=== PATIENT | female | born 2000 | race Caucasian/White ===

== ENCOUNTER → 2022-01-19 | Outpatient (CLI) | payer OTHER, SELFPAY | END | disposition home or self-care (01) | LOC: LABSPEC 16:53 | PROVIDERS: Visit Provider Obstetrics & Gynecology | DX: Z36.85 Encounter for antenatal screening for Streptococcus B (principal) | CPT/HCPCS: 87081 ==

== ENCOUNTER 2022-02-18 03:15 | Inpatient (IN) | payer OTHER, SELFPAY ==
[2022-02-18] VITALS (69 sets, daily range): BP systolic 102–166; BP diastolic 55–107; PULSE 71–116; RESP 15; TEMP 36–37.6; O2SAT 80–100; BMI 32.9
[2022-02-18] MEDS: LACTATED RINGERS 500 ML 999 ML IV (03:30)
[2022-02-18 03:56] LABS: Absolute Lymphocyte Count 1.62 X10^3/uL (0.83-4.51); Absolute Neutrophil Count 10.8 X10^3/uL (2.0-7.7); Basophil# 0.02 X10^3/uL; Basophil% 0.1 % (0-1); Eosinophil# 0.04 X10^3/uL; Eosinophils% 0.3 % (0-5); Lymphocyte # 1.62 X10^3/ul (0.83-4.51); Mean Corp Hgb Conc 34.1 g/dL (32-36); Mean Corpuscular Hgb 29.4 pg (27.0-32.0); Mean Corpuscular Volume 86.1 fL (81-99); Mean Platelet Vol. 10.1 fl (6.2-12.0); Monocyte# 0.89 X10^3/uL; Monocyte% 6.6 % (0-10); NRBC Flagged by Analyzer 0 % (0-5); Neutrophil # 10.76 X10^3/uL (2.7-7.7); Platelet Count 244 K/mm3 (150-450); RBC Distribution Width SD 40.2 fl (35.1-43.9); Red Blood Count 4.76 M/mm3 (4.2-5.4); White Blood Count 13.5 K/mm3 (4.4-11.0)
[2022-02-18] MEDS: Lactated Ringers 1,000 ML 50 ML IV ×2 (04:06→09:09)
[2022-02-18] MEDS: fentaNYL-bupivacaine (epidural) 100 ML BAG EPIDURAL ×3 (04:59→13:39)
--- NOTE | 2022-02-18 07:46 | PCM.HP.BLA ---
History and Physical Date of Admission: 02/18/22 Chief complaint: Contractions History present illness: 21-year-old G1, P0 at 40 weeks and 3 days with JOSE 02/15/2022 arrives with contractions. Denies headache, visual changes, chest pain, shortness of breath, nausea vomit, right upper quadrant pain. Patient states good movement. Obstetric history: G1: Current Past medical history: None Medications: None Past surgical history: None Allergies: No known drug allergies Social history: 1 pack/day smoker, denies alcohol or drug use Family history: Denies history DVT or PE Review of systems: Besides above pertinent positives a full review of systems was performed and found to be negative Physical exam: Pressure 132/73 pulse 76 temperature 97.8 ?F SPO2 98% on room air General: Normal-appearing no acute distress HEENT: Normocephalic atraumatic no cervical lymphadenopathy Cardiac/respiratory: No use accessory muscles, nonlabored breathing Cervical exam: 8/90/0, AROM clear fluid minimal Extremities: No peripheral edema normal peripheral pulses Psych: Normal affect, demeanor nonpressured speech Labs: White blood cell count 13.5 hemoglobin 14.0 hematocrit 41.0% platelets 244. Blood type O+ antibody negative Assessment and plan: 21-year-old G1, P0 at 40 weeks and 3 days in labor Admit labor and delivery CEFM GBS negative Routine orders Anesthesia to see
[2022-02-18] MEDS: Oxytocin 15 Units/NS 250ml 15 UNITS/250 ML IV.SOLN 2 UNITS IV (11:06)
--- NOTE | 2022-02-18 12:42 | PCM.PN.OB ---
Subjective Subjective Patient comfortable pushing with epidural Objective Data Objective Data Vital Signs: Vital Signs Temp Pulse BP Pulse Ox 98.7 F 74 127/72 H 98 02/18/22 11:30 02/18/22 11:32 02/18/22 11:32 02/18/22 11:30 Weight: 186 lb Body Mass Index (BMI) 32.9 Intake & Output: Intake and Output for Last 24 Hours 02/16/22 02/17/22 02/18/22 23:59 23:59 23:59 Intake Total 1152.5 / 1152.5 Output Total 500 / 500 Balance 652.5 / 652.5 Lab / Micro Data Result Diagrams: 02/18/22 03:30 Labs: Laboratory Results - last 24 hr 02/18/22 03:30: WBC 13.5 H, RBC 4.76, Hgb 14.0, Hct 41.0, MCV 86.1, MCH 29.4, MCHC 34.1, RDW Std Deviation 40.2, RDW Coeff of Jacques 13.0, Plt Count 244, MPV 10.1, Immature Gran % (Auto) 1.000 H, Neut % (Auto) 80.0 H, Lymph % (Auto) 12.0 L, [place] % (Auto) 6.6, Eos % (Auto) 0.3, Baso % (Auto) 0.1, Absolute Neuts (auto) 10.8 H, Absolute Lymphs (auto) 1.62, Nucleated RBC % 0 02/18/22 03:30: Blood Type O POSITIVE, Antibody Screen NEGATIVE Physical Exam Const alert, oriented x3, no apparent distress, average body habitus, healthy appearing and well nourished HEENT normocephalic and moist oral mucous membranes Eyes PERRL Neck full ROM Resp normal respiratory effort, no retractions and no use of accessory muscles Narrative: Cervical exam: 10/100/+1 Extremity normal to inspection, full ROM and no clubbing, cyanosis or edema Neuro moves all extremities and no focal motor deficits Psych mental status grossly normal, affect normal, speech normal and activity/motor behavior normal Assessment & Plan (1) : PLAN: Patient seen and examined. Pushing with epidural. Coached patient through several pushes. Patient pushing adequately. Educated patient on findings and options including continued maternal pushing versus operative delivery versus section risk benefits alternatives. Patient wishes to continue maternal efforts. We will continue current management
[2022-02-18] MEDS: miSOPROStol 200 MCG Tablet 1000 MCG RC (14:40)
[2022-02-18 16:03] LABS: Absolute Lymphocyte Count 1.25 X10^3/uL (0.83-4.51); Absolute Neutrophil Count 18.4 X10^3/uL (2.0-7.7); Basophil# 0.03 X10^3/uL; Basophil% 0.1 % (0-1); Eosinophil# 0.01 X10^3/uL; Hematocrit 40.4 % (37-47); Hemoglobin 14.1 g/dL (12.0-15.0); Lymphocyte # 1.25 X10^3/ul (0.83-4.51); Lymphocyte % 5.9 % (19-41); Mean Corp Hgb Conc 34.9 g/dL (32-36); Mean Corpuscular Hgb 29.6 pg (27.0-32.0); Mean Corpuscular Volume 84.7 fL (81-99); Monocyte# 1.39 X10^3/uL; Monocyte% 6.6 % (0-10); NRBC Flagged by Analyzer 0 % (0-5); Neutrophil # 18.39 X10^3/uL (2.7-7.7); Neutrophil % 86.9 % (47-70); Platelet Count 213 K/mm3 (150-450); RBC Distribution Width CV 13.1 % (11.6-14.6); RBC Distribution Width SD 40.1 fl (35.1-43.9); Red Blood Count 4.77 M/mm3 (4.2-5.4); White Blood Count 21.2 K/mm3 (4.4-11.0)
[2022-02-18 16:43] LABS: ALB/GLOB Ratio 0.7 RATIO (0.9-2.4); AST(SGOT) 23 U/L (15-37); Alanine Aminotransfer ALT/SGPT 18 U/L (13-56); Albumin, Serum 2.5 g/dL (3.2-5.0); Alkaline Phosphatase 184 U/L (45-117); Anion Gap 9 (5-15); BUN 5 mg/dL (7-18); BUN/Creat Ratio 9.5 RATIO (10-20); Calcium,Total 8.7 mg/dL (8.5-10.1); Chloride 107 mmol/L (98-107); Creatinine, Serum 0.53 mg/dL (0.55-1.02); EST Glomerular Filtration Rate 153 mL/min (>60); Est Glom Filt Rate - Afr Amer 185 mL/min (>60); Estimated Creatinine Clearance 137.73 ml/min; Globulin 3.7 g/dL (2.2-4.2); Glucose 88 mg/dL (74-106); LDH 213 U/L (84-246); Potassium 3.3 mmol/L (3.5-5.1); Protein, Total 6.2 g/dL (6.4-8.2); Sodium Level 137 mmol/L (136-145)
--- NOTE | 2022-02-18 16:46 | EX.PCM.OBRPT ---
Vaginal Delivery Findings Description of Procedure: Preop diagnosis: Term, maternal exhaustion Postop diagnosis: Term, maternal exhaustion Surgeon: Chucho Alexander MD Anesthesia: Epidural EBL: 350 cc Complications: None Specimen: Cord blood Findings: Female in vertex position, LOP +2 station. Apgars 9/9. Vacuum pull x2, no pop offs. Second-degree midline perineal laceration. Consent: Patient arrived in labor subsequently found to be complete dilation and began pushing. Pushed for nearly 5 hours noted to have maternal exhaustion. Upon evaluation LOP +2 station. Pelvis felt adequate for vaginal delivery. Pain well controlled with epidural. Educated patient on options including operative delivery versus delivery risk benefits alternatives. Patient elects for vacuum-assisted vaginal delivery, patient understands risks of cephalhematoma and shoulder dystocia along with maternal tears including the rectum. Patient states understanding wish to proceed. Procedure: Kiwi vacuum was opened. Vaginal examination was again performed and noted to be LOP +2 station. Aguilar catheter was in place. Kiwi suction cup was placed 3 cm anterior to the posterior fontanelle, no maternal tissue was noted to be entrapped under the cup. The right hand applied gentle traction in the axis of the maternal pelvis and coordination with uterine contractions and maternal pushing. Progressive descent was noted with each pull. 2 vacuum pulls were performed, no pop offs. Right hand was elevated with maternal pushing when noting bulge of the perineum. Head delivered. Vacuum suction removed. Head and shoulders delivered with ease. They was handed off to patient. Cord was clamped and cut. Placenta was delivered via cord traction and fundal massage. IV oxytocin was initiated in order to facilitate uterine contractions. Prophylactic Methergine IM and Cytotec [place] thousand echograms were given with prolonged second stage of labor. Cervix and vagina were thoroughly examined, second-degree midline perineal laceration was noted and repaired in typical fashion. was examined after delivery, no visible lacerations or bruises were found.
[2022-02-18] MEDS: Ibuprofen 600 MG Tablet PO (19:41)
[2022-02-19 04:03] VITALS: BP 115/69; PULSE 116; RESP 15; TEMP 36.4; O2SAT 95
--- NOTE | 2022-02-19 07:54 | PCM.PN.OB ---
Subjective Subjective No overnight complaints. Denies headache, visual changes, chest pain, shortness of breath, nausea vomit, right upper quadrant pain Objective Data Objective Data Vital Signs: Vital Signs Temp Pulse Resp BP Pulse Ox O2 Del Method 97.6 F L 116 H 15 115/69 95 Room Air 02/19/22 04:03 02/19/22 04:03 02/19/22 04:03 02/19/22 04:03 02/19/22 04:03 02/19/22 04:03 Oxygen Delivery Method Room Air Weight: 186 lb Body Mass Index (BMI) 32.9 Intake & Output: Intake and Output for Last 24 Hours 02/17/22 02/18/22 02/19/22 23:59 23:59 23:59 Intake Total 3102.50 / 3102.50 Output Total 2100 / 2100 Balance 1002.50 / 1002.50 Lab / Micro Data Result Diagrams: 02/18/22 15:50 02/18/22 15:50 Labs: Laboratory Results - last 24 hr 02/18/22 15:50: WBC 21.2 H, RBC 4.77, Hgb 14.1, Hct 40.4, MCV 84.7, MCH 29.6, MCHC 34.9, RDW Std Deviation 40.1, RDW Coeff of Jacques 13.1, Plt Count 213, MPV 10.0, Immature Gran % (Auto) 0.500, Neut % (Auto) 86.9 H, Lymph % (Auto) 5.9 L, [place] % (Auto) 6.6, Eos % (Auto) 0.0, Baso % (Auto) 0.1, Absolute Neuts (auto) 18.4 H, Absolute Lymphs (auto) 1.25, Nucleated RBC % 0 02/18/22 15:50: Sodium 137, Potassium 3.3 L, Chloride 107, Carbon Dioxide 21.0, Anion Gap 9, BUN 5 L, Creatinine 0.53 L, Estim Creat Clear Calc 137.73, Est GFR (MDRD) Af Amer 185, Est GFR (MDRD) Non-Af 153, BUN/Creatinine Ratio 9.5 L, Glucose 88, Calcium 8.7, Total Bilirubin 1.20 H, AST 23, ALT 18, Alkaline Phosphatase 184 H, Lactate Dehydrogenase 213, Total Protein 6.2 L, Albumin 2.5 L, Globulin 3.7, Albumin/Globulin Ratio 0.7 L Physical Exam Const alert, oriented x3, no apparent distress, average body habitus, healthy appearing and well nourished HEENT normocephalic and moist oral mucous membranes Eyes PERRL Neck full ROM Resp normal respiratory effort, no retractions and no use of accessory muscles GI GI Narrative: Soft, nontender, uterus firm and below umbilicus Extremity normal to inspection and full ROM Neuro moves all extremities and no focal motor deficits Psych mental status grossly normal, affect normal, speech normal and activity/motor behavior normal Assessment & Plan (1) Vaginal delivery: PLAN: day 1 status post vacuum-assisted vaginal delivery for maternal exhaustion. Formula feeding. Elevated blood pressures immediately after delivery, HELLP labs overall stable. We will repeat labs today. Continue to monitor blood pressures, patient asymptomatic. Likely home tomorrow
[2022-02-19 08:13] VITALS: BP 112/66; PULSE 109; RESP 16; TEMP 36.2; O2SAT 97
[2022-02-19] MEDS: Ibuprofen 600 MG Tablet PO (08:25)
[2022-02-19 12:58] VITALS: BP 114/71; PULSE 78; RESP 16; TEMP 35.5
[2022-02-19 14:37] LABS: Absolute Neutrophil Count 12.1 X10^3/uL (2.0-7.7); Basophil# 0.07 X10^3/uL; Basophil% 0.4 % (0-1); Eosinophil# 0.14 X10^3/uL; Eosinophils% 0.9 % (0-5); Hematocrit 44.7 % (37-47); Hemoglobin 13.9 g/dL (12.0-15.0); Lymphocyte % 14.1 % (19-41); Mean Corp Hgb Conc 31.1 g/dL (32-36); Mean Corpuscular Hgb 29.7 pg (27.0-32.0); Mean Corpuscular Volume 95.5 fL (81-99); Mean Platelet Vol. 9.7 fl (6.2-12.0); Monocyte# 1.02 X10^3/uL; Monocyte% 6.5 % (0-10); NRBC Flagged by Analyzer 0 % (0-5); Neutrophil # 12.07 X10^3/uL (2.7-7.7); Neutrophil % 77.3 % (47-70); Platelet Count 217 K/mm3 (150-450); RBC Distribution Width CV 13.4 % (11.6-14.6); RBC Distribution Width SD 47.3 fl (35.1-43.9); Red Blood Count 4.68 M/mm3 (4.2-5.4); White Blood Count 15.6 K/mm3 (4.4-11.0)
[2022-02-19 15:16] LABS: ALB/GLOB Ratio 0.6 RATIO (0.9-2.4); AST(SGOT) 29 U/L (15-37); Alanine Aminotransfer ALT/SGPT 21 U/L (13-56); Albumin, Serum 2.2 g/dL (3.2-5.0); Alkaline Phosphatase 159 U/L (45-117); Anion Gap 6 (5-15); BUN 7 mg/dL (7-18); BUN/Creat Ratio 10.1 RATIO (10-20); Calcium,Total 8.7 mg/dL (8.5-10.1); Chloride 112 mmol/L (98-107); EST Glomerular Filtration Rate 112 mL/min (>60); Est Glom Filt Rate - Afr Amer 135 mL/min (>60); Estimated Creatinine Clearance 104.28 ml/min; Globulin 3.9 g/dL (2.2-4.2); Glucose 97 mg/dL (74-106); LDH 251 U/L (84-246); Potassium 3.8 mmol/L (3.5-5.1); Protein, Total 6.1 g/dL (6.4-8.2); Sodium Level 138 mmol/L (136-145)
[2022-02-19 19:40] VITALS: BP 113/84; PULSE 92; RESP 16; TEMP 36.3
[2022-02-20 01:08] VITALS: BP 127/78; PULSE 110; RESP 17; TEMP 36.3
[2022-02-20 08:45] VITALS: BP 108/72; PULSE 92; RESP 16; TEMP 36.2
--- NOTE | 2022-02-20 11:40 | DS.PCM_ITS ---
Discharge Summary Date of Admission: 02/18/22 Date of Discharge: 02/20/22 Summary: Patient arrived on 02/18/2022 in labor. Subsequently became complete dilation and pushed for nearly 5 hours, maternal exhaustion. Subsequently had vacuum- assisted vaginal delivery on 02/18/2022. Routine recovery. Discharge home on 02/20/2022 Meaningful Use Info Meaningful Use Diagnoses (Choose all that apply): None applicable Discharge Plan Admission Admit Date/Time: 02/18/22 03:15 Primary Reason for Your Visit: Labor Attending Provider: Chucho Alexander Primary Care Provider: Care Dorothy Hanna Primary Instructions Additional Instructions / Restrictions: Regular diet. Weightbearing as tolerated. No intercourse for 4 to 6 weeks. Okay to shower. Call if fevers, chills, chest pain, shortness of breath. Follow-up 4 to 6 weeks Discharge Orders/Prescriptions Prescriptions: No Action 1 tab PO/SL DAILY Referrals / Follow Up: Care Physician,No Primary [Primary Care Provider] - Disposition Disposition (needs filled in before D/C Order can be placed): Home, Self Care
--- NOTE | 2022-02-20 11:40 | PCM.PN.OB ---
Subjective Subjective No overnight complaints Objective Data Objective Data Vital Signs: Vital Signs Temp Pulse Resp BP Pulse Ox O2 Del Method 97.2 F L 92 16 108/72 97 Room Air 02/20/22 08:45 02/20/22 08:45 02/20/22 08:45 02/20/22 08:45 02/19/22 08:13 02/19/22 12:58 Oxygen Delivery Method Room Air Weight: 186 lb Body Mass Index (BMI) 32.9 Intake & Output: Intake and Output for Last 24 Hours 02/18/22 02/19/22 02/20/22 23:59 23:59 23:59 Intake Total 3102.50 / 3102.50 Output Total 2100 / 2100 Balance 1002.50 / 1002.50 Lab / Micro Data Result Diagrams: 02/19/22 14:25 02/19/22 14:25 Labs: Laboratory Results - last 24 hr 02/19/22 14:25: WBC 15.6 H, RBC 4.68, Hgb 13.9, Hct 44.7, MCV 95.5 D, MCH 29.7, MCHC 31.1 L D, RDW Std Deviation 47.3 H, RDW Coeff of Jacques 13.4, Plt Count 217, MPV 9.7, Immature Gran % (Auto) 0.800, Neut % (Auto) 77.3 H, Lymph % (Auto) 14.1 L, [place] % (Auto) 6.5, Eos % (Auto) 0.9, Baso % (Auto) 0.4, Absolute Neuts (auto) 12.1 H, Absolute Lymphs (auto) 2.20, Nucleated RBC % 0 02/19/22 14:25: Sodium 138, Potassium 3.8, Chloride 112 H, Carbon Dioxide 20.0 L, Anion Gap 6, BUN 7, Creatinine 0.70, Estim Creat Clear Calc 104.28, Est GFR (MDRD) Af Amer 135, Est GFR (MDRD) Non-Af 112, BUN/Creatinine Ratio 10.1, Glucose 97, Calcium 8.7, Total Bilirubin 0.50, AST 29, ALT 21, Alkaline Phosphatase 159 H, Lactate Dehydrogenase 251 H, Total Protein 6.1 L, Albumin 2.2 L, Globulin 3.9, Albumin/Globulin Ratio 0.6 L Physical Exam Const alert, oriented x3, no apparent distress, average body habitus, healthy appearing and well nourished HEENT normocephalic and moist oral mucous membranes Eyes PERRL Neck full ROM Resp normal respiratory effort, no retractions and no use of accessory muscles Extremity normal to inspection, full ROM and no clubbing, cyanosis or edema Neuro moves all extremities and no focal motor deficits Psych mental status grossly normal, affect normal, speech normal and activity/motor behavior normal Assessment & Plan (1) Vaginal delivery: PLAN: day 2 status post vacuum-assisted vaginal delivery for maternal exhaustion. Formula feeding. Pain well controlled. Okay to discharge home today
== END 2022-02-20 12:25 | disposition home or self-care (01) | DRG 807 ==
LOC: WPOUT 03:18 → WP 03:18
PROVIDERS: Admitting Provider Obstetrics & Gynecology; Visit Provider Obstetrics & Gynecology
DX: O48.0 Post-term pregnancy (principal); Z37.0 Single live birth; O63.1 Prolonged second stage (of labor); F17.200 Nicotine dependence, unspecified, uncomplicated; O75.81 Maternal exhaustion complicating labor and delivery; O70.1 Second degree perineal laceration during delivery; O99.334 Smoking (tobacco) complicating childbirth; Z3A.40 40 weeks gestation of pregnancy; O99.893 Other specified diseases and conditions complicating puerperium; R03.0 Elevated blood-pressure reading, without diagnosis of hypertension
CPT/HCPCS: 36415; 59025; 59050; 80053; 83615; 85025; 86850; 86900; 86901; 99218; J7120; G0378